=== PATIENT | male | born 1985 | race Caucasian/White ===

== ENCOUNTER 2024-06-05 14:43 | Emergency (ER) | payer OTHER ==
[~2024-06-05] VITALS: Ht 175.3 cm; Wt 100.0 kg
[2024-06-05] MEDS ORDERED: ondansetron HCL 4 MG/2 ML VIAL IV ONE (15:30)
[2024-06-05 15:39] LABS: BASOPHILS 0.6 % (0-2); EOSINOPHILS 1.9 % (0-6); HEMATOCRIT 45.8 % (35.0-50.0); HEMOGLOBIN 15.7 g/dL (12.0-18.0); LYMPHOCYTES 29.6 % (24-44); MCH 31.6 (27-36); MCHC 34.4 g/dl (30-36); MCV 91.9 fl (81-99); MONOCYTES 7.1 % (0-12); NEUTROPHILS 60.8 % (39-80); PLATELET COUNT 270 K/uL (140-440); RBC 4.98 M/ul (4.3-5.7); RDW 12.4 (10.5-15.0)
[2024-06-05] MEDS ORDERED: CONSTULOSE10 GM/15 M PO (15:45)
[2024-06-05 15:55] LABS: ALBUMIN/GLOBULIN RATIO 1.05 (1.1-2.4); ANION GAP 10.6 (7-21); BILIRUBIN, TOTAL 0.4 ng/dL (0.2-1.0); BUN/CREATININE RATIO 13.48 (6.0-28.6); CALCIUM 9.2 mg/dL (8.5-10.1); CREATININE, SERUM 0.89 mg/dL (0.70-1.30); POTASSIUM 4.6 mmol/L (3.5-5.1); PROTEIN, TOTAL 7.8 g/dL (6.4-8.2)
[2024-06-05 17:15] LABS: BILIRUBIN, URINE NEGATIVE (negative); BLOOD/HGB, URINE NEGATIVE (Negative); KETONE, URINE NEGATIVE (Negative); LEUK ESTERASE, URINE NEGATIVE (negative); NITRITE, URINE NEGATIVE (negative); PH, URINE 6.5 (5-7)
[2024-06-05] MEDS ORDERED: DICYCLOMINE HCL20 MG PO (17:42)
[2024-06-05] MEDS ORDERED: DICYCLOMINE HCL 10 MG CAP PO ONE (17:45)
[2024-06-05 17:55] VITALS: BP 127/84
== END 2024-06-05 17:55 | disposition home or self-care (01) ==
LOC: ED 14:43
PROVIDERS: Emergency Medicine
DX: R10.9 Unspecified abdominal pain (principal); K92.1 Melena; Z88.0 Allergy status to penicillin; Z79.899 Other long term (current) drug therapy
CPT/HCPCS: 36415; 74177; 80053; 81003; 83690; 85025; 99284-25; Q9967